=== PATIENT | female | born 1980 | race Caucasian/White ===

== ENCOUNTER 2019-02-26 21:38 | Emergency (ER) | payer OTHER ==
[~2019-02-26] VITALS: Ht 154.9 cm; Wt 61.2 kg
[2019-02-26] MEDS ORDERED: ZANTAC 7575 MG (22:08)
== END 2019-02-27 04:02 | disposition home or self-care (01) ==
LOC: ER 21:38
DX: K29.70 Gastritis, unspecified, without bleeding (principal); R00.2 Palpitations